=== PATIENT | male | born 1960 | race African-American/Black ===

== ENCOUNTER 2023-04-07 12:42 | Emergency (ER) | payer OTHER ==
[2023-04-07] MEDS ORDERED: Magnesium 2 GM/50 ML BAG (IN WATER) ONE (13:44)
[2023-04-07] MEDS ORDERED: predniSONE 20 MG TAB ONE (13:44)
[2023-04-07 13:52] LABS: #Eosinphils 0.5 thou/uL (0.0-0.7); #Monocytes 0.4 thou/uL (0.11-0.59); #Neutrophils 1.9 thou/uL (1.40-6.50); %Basophils 0.9 % (0.0-1.0); %Eosinophils 11.3 % (0.0-10.0); %Lymphocytes 34.9 % (21.0-51.0); %Monocytes 9.2 % (0.0-10.0); %Neutrophils 43.5 % (42.0-75.0); Hematocrit 44.4 % (42.0-52.0); Mean Corpuscular HGB CONC 33.8 g/dL (32.0-36.0); Mean Corpuscular Hemoglobin 31.3 pg (27.0-31.0); Mean Corpuscular Volume 92.5 fl (78.0-98.0); Platelet Count 233 10x3/uL (130-400); RBC Distribution Width 12.1 % (11.5-14.5); White Blood Cell (WBC) Count 4.4 10x3/uL (4.8-10.8)
[2023-04-07 14:17] LABS: ALT (SGPT) 15 U/L (8-55); AST (SGOT) 16 U/L (5-34); Albumin 4.1 g/dL (3.4-4.8); Alkaline Phosphatase 66 U/L (40-110); Anion Gap 12 mmol/L (10-20); BUN (Urea Nitrogen) 9 mg/dL (8.4-25.7); Bilirubin, Total 0.3 mg/dL (0.2-1.2); Calc. Creatinine Clearance 0 mL/min (70-130); Calcium 9.6 mg/dL (7.8-10.44); Carbon Dioxide 25 mmol/L (23-31); Chloride 105 mmol/L (98-107); Estimated GFR 100; Globulin 3.5 g/dL (2.4-3.5); Glucose 106 mg/dL (80-115); Potassium 4.2 mmol/L (3.5-5.1); Protein, Total 7.6 g/dL (5.8-8.1); Sodium 138 mmol/L (136-145)
== END 2023-04-07 15:32 | disposition home or self-care (01) ==
LOC: ERS 12:42
DX: J44.1 Chronic obstructive pulmonary disease with (acute) exacerbation (principal); I10 Essential (primary) hypertension
CPT/HCPCS: 36415; 71045; 80053; 83880; 84484; 85025; 93005; 96365; J3475; J7512

== ENCOUNTER 2023-04-19 04:10 | Inpatient (IN) | payer OTHER ==
[2023-04-19] MEDS ORDERED: Magnesium 2 GM/50 ML BAG (IN WATER) ONE (04:14)
[2023-04-19] MEDS ORDERED: Ipratropium/Albuterol 3 ML NEB ONE (04:19)
[2023-04-19] MEDS ORDERED: LevoFLOXacin 750 mg/D5W 150 ml Premix Bag ONE (04:31)
[2023-04-19] MEDS ORDERED: Dexamethasone 10 MG/ML VIAL ONE (04:31)
[2023-04-19 04:42] LABS: Actual Bicarbonate (HCO3v) 29.2 mEq/L (22-28); Base Excess -1.5 mEq/L (-2.0 to +3.0); Calcium, Ionized (venous) 1.23 mmol/L (1.16-1.32); Chloride (VBG) 101 mmol/L (98-106); Hematocrit-VBG 54 % (42.0-52.0); Hemoglobin (Hb) 18.3 g/dL (13.1-17.2); Potassium (VBG) 4.41 mmol/L (3.70-5.30); Sodium 143.3 mmol/L (133-146); pH (venous) 7.213 (7.32-7.43)
[2023-04-19 04:57] LABS: #Basophils 0.1 thou/uL (0.0-0.2); #Eosinphils 0.4 thou/uL (0.0-0.7); #Monocytes 0.3 thou/uL (0.11-0.59); #Neutrophils 4.8 thou/uL (1.40-6.50); %Basophils 0.7 % (0.0-1.0); %Lymphocytes 21.8 % (21.0-51.0); %Monocytes 4.6 % (0.0-10.0); %Neutrophils 66.8 % (42.0-75.0); Hematocrit 51.8 % (42.0-52.0); Hemoglobin 17.2 g/dL (14.0-18.0); Mean Corpuscular HGB CONC 33.2 g/dL (32.0-36.0); Mean Corpuscular Hemoglobin 31.7 pg (27.0-31.0); Mean Corpuscular Volume 95.4 fl (78.0-98.0); Mean Platelet Volume 9.5 fL (7.4-10.4); Platelet Count 257 10x3/uL (130-400); RBC Distribution Width 12.5 % (11.5-14.5); Red Blood Cell (RBC) Count 5.43 mill/uL (4.70-6.10); White Blood Cell (WBC) Count 7.2 10x3/uL (4.8-10.8)
[2023-04-19 05:19] LABS: Actual Bicarbonate (HCO3a) 25.1 mEq/L (22-28); Analyzer IN Cardio ER; Base Excess (BEa) -1.2 mEq/L (-2.0 to +3.0); Calcium, Ionized (arterial) 1.16 mmol/L (1.12-1.30); Carboxyhemoglobin (COHb) 0.2 gm% (0.0-3.0); Hematocrit-ABG 45 % (42.0-52.0); Hemoglobin (Hb) 15.4 g/dL (14.0-18.0); O2 Tension (PaO2), arterial 146.7 mmHg (> 80.0); Potassium - ABG Lab 4.04 mmol/L (3.70-5.30); pH, Arterial 7.337 (7.35-7.45)
[2023-04-19 05:26] LABS: ALT (SGPT) 18 U/L (8-55); AST (SGOT) 18 U/L (5-34); Albumin 4.8 g/dL (3.4-4.8); Alkaline Phosphatase 80 U/L (40-110); Anion Gap 12 mmol/L (10-20); BUN (Urea Nitrogen) 12 mg/dL (8.4-25.7); Bilirubin, Total 0.4 mg/dL (0.2-1.2); Calc. Creatinine Clearance 0 mL/min (70-130); Calcium 10.1 mg/dL (7.8-10.44); Carbon Dioxide 28 mmol/L (23-31); Chloride 102 mmol/L (98-107); Estimated GFR 97; Globulin 3.9 g/dL (2.4-3.5); Glucose 104 mg/dL (80-115); Lipase 21 U/L (8-78); Potassium 4.3 mmol/L (3.5-5.1); Protein, Total 8.7 g/dL (5.8-8.1); Sodium 138 mmol/L (136-145)
[2023-04-19 05:27] LABS: Puncture Site RR
[2023-04-19 05:29] LABS: Troponin I Less than 0.010 ng/mL (< 0.028)
[2023-04-19] MEDS ORDERED: hydrALAZINE 20 MG/ML VIAL SLOW IVP PRN (07:50)
[2023-04-19] MEDS ORDERED: Ondansetron PF 4 MG/2 ML Vial IVP PRN (07:50)
[2023-04-19] MEDS ORDERED: Acetaminophen 325 MG TAB PO PRN (07:50)
[2023-04-19 08:26] VITALS: BMI 28.5
[2023-04-19] MEDS ORDERED: Arformoterol 15 MCG/2 ML NEB NEB SCH (09:45)
[2023-04-19] MEDS ORDERED: Budesonide 0.5 MG/2 ML NEB NEB SCH (09:45)
[2023-04-19] MEDS: Ipratropium/Albuterol 3 ML NEB NEB SCH ×4 (10:54→22:25)
[2023-04-19] MEDS: Famotidine 20 MG TAB PO SCH ×2 (11:03→20:21)
[2023-04-19] MEDS: methylPREDNISolone Sod Succ 40 MG VIAL IVP SCH ×3 (11:03→23:59)
[2023-04-19] MEDS: Arformoterol 15 MCG/2 ML NEB NEB SCH (18:33)
[2023-04-19] MEDS: Budesonide 0.5 MG/2 ML NEB NEB SCH (18:33)
[2023-04-19] MEDS: Gabapentin 400 MG CAP PO SCH (20:21)
[2023-04-19] MEDS: Montelukast Sodium 10 mg Tablet PO SCH (20:21)
[2023-04-20] MEDS: Ipratropium/Albuterol 3 ML NEB NEB SCH ×6 (03:05→22:19)
[2023-04-20] MEDS: LevoFLOXacin 750 mg/D5W 750 MG in Premix Bag 1 BAG IVPB SCH (05:16)
[2023-04-20] MEDS: methylPREDNISolone Sod Succ 40 MG VIAL IVP SCH ×4 (05:16→23:22)
[2023-04-20 06:51] LABS: #Monocytes 0.2 thou/uL (0.11-0.59); #Neutrophils 8.5 thou/uL (1.40-6.50); %Lymphocytes 11.4 % (21.0-51.0); %Monocytes 2.1 % (0.0-10.0); %Neutrophils 86.2 % (42.0-75.0); Hematocrit 43.9 % (42.0-52.0); Hemoglobin 14.3 g/dL (14.0-18.0); Mean Corpuscular HGB CONC 32.6 g/dL (32.0-36.0); Mean Corpuscular Hemoglobin 31.4 pg (27.0-31.0); Mean Corpuscular Volume 96.3 fl (78.0-98.0); Mean Platelet Volume 9.9 fL (7.4-10.4); Platelet Count 214 10x3/uL (130-400); RBC Distribution Width 12.5 % (11.5-14.5); Red Blood Cell (RBC) Count 4.56 mill/uL (4.70-6.10); White Blood Cell (WBC) Count 9.9 10x3/uL (4.8-10.8)
[2023-04-20 07:18] LABS: Anion Gap 16 mmol/L (10-20); BUN (Urea Nitrogen) 12 mg/dL (8.4-25.7); Calc. Creatinine Clearance 104 mL/min (70-130); Calcium 9.8 mg/dL (7.8-10.44); Carbon Dioxide 24 mmol/L (23-31); Chloride 103 mmol/L (98-107); Estimated GFR 98; Glucose 169 mg/dL (80-115); Potassium 4.6 mmol/L (3.5-5.1); Sodium 138 mmol/L (136-145)
[2023-04-20] MEDS: Arformoterol 15 MCG/2 ML NEB NEB SCH ×2 (07:24→18:26)
[2023-04-20] MEDS: Budesonide 0.5 MG/2 ML NEB NEB SCH ×2 (07:24→18:26)
[2023-04-20] MEDS: Gabapentin 400 MG CAP PO SCH ×3 (09:06→21:08)
[2023-04-20] MEDS: Famotidine 20 MG TAB PO SCH ×2 (09:06→21:08)
[2023-04-20] MEDS: Montelukast Sodium 10 mg Tablet PO SCH (21:08)
[2023-04-21] MEDS: Ipratropium/Albuterol 3 ML NEB NEB SCH ×6 (02:27→22:08)
[2023-04-21] MEDS: methylPREDNISolone Sod Succ 40 MG VIAL IVP SCH ×3 (05:33→17:45)
[2023-04-21] MEDS: LevoFLOXacin 750 mg/D5W 750 MG in Premix Bag 1 BAG IVPB SCH (05:33)
[2023-04-21] MEDS: Arformoterol 15 MCG/2 ML NEB NEB SCH ×2 (06:24→18:49)
[2023-04-21] MEDS: Budesonide 0.5 MG/2 ML NEB NEB SCH ×2 (06:27→18:48)
[2023-04-21] MEDS: Famotidine 20 MG TAB PO SCH ×2 (08:29→21:17)
[2023-04-21] MEDS: Amlodipine 10 MG TAB PO SCH (08:29)
[2023-04-21] MEDS: Gabapentin 400 MG CAP PO SCH ×3 (08:30→21:16)
[2023-04-21] MEDS: Cholecalciferol 1,000 UNITS (25 MCG) TAB PO SCH (08:30)
[2023-04-21] MEDS ORDERED: Non-Formulary Item 1 EACH (Cholecalciferol (Vitamin D3) [Vitamin D3] 50 MCG Capsule) PO SCH (09:00)
[2023-04-21] MEDS ORDERED: Benzonatate 100 MG CAP PO PRN (17:56)
[2023-04-21] MEDS ORDERED: Bisacodyl 5 MG TAB PO PRN (17:57)
[2023-04-21] MEDS: Montelukast Sodium 10 mg Tablet PO SCH (21:17)
[2023-04-22] MEDS: methylPREDNISolone Sod Succ 40 MG VIAL IVP SCH ×3 (00:29→12:39)
[2023-04-22] MEDS: Ipratropium/Albuterol 3 ML NEB NEB SCH ×3 (03:13→10:46)
[2023-04-22] MEDS: LevoFLOXacin 750 mg/D5W 750 MG in Premix Bag 1 BAG IVPB SCH (05:18)
[2023-04-22 06:10] LABS: #Monocytes 0.2 thou/uL (0.11-0.59); %Basophils 0.1 % (0.0-1.0); %Lymphocytes 7.1 % (21.0-51.0); %Monocytes 1.7 % (0.0-10.0); %Neutrophils 90.8 % (42.0-75.0); Hematocrit 40.1 % (42.0-52.0); Hemoglobin 13.2 g/dL (14.0-18.0); Mean Corpuscular HGB CONC 32.9 g/dL (32.0-36.0); Mean Corpuscular Hemoglobin 31.7 pg (27.0-31.0); Mean Corpuscular Volume 96.4 fl (78.0-98.0); Mean Platelet Volume 9.8 fL (7.4-10.4); Platelet Count 208 10x3/uL (130-400); RBC Distribution Width 12.7 % (11.5-14.5); Red Blood Cell (RBC) Count 4.16 mill/uL (4.70-6.10); White Blood Cell (WBC) Count 13.2 10x3/uL (4.8-10.8)
[2023-04-22 06:35] LABS: Anion Gap 12 mmol/L (10-20); BUN (Urea Nitrogen) 12 mg/dL (8.4-25.7); Calc. Creatinine Clearance 110 mL/min (70-130); Calcium 9.3 mg/dL (7.8-10.44); Carbon Dioxide 26 mmol/L (23-31); Chloride 102 mmol/L (98-107); Estimated GFR 100; Glucose 162 mg/dL (80-115); Sodium 136 mmol/L (136-145)
[2023-04-22] MEDS: Arformoterol 15 MCG/2 ML NEB NEB SCH (07:02)
[2023-04-22] MEDS: Budesonide 0.5 MG/2 ML NEB NEB SCH (07:02)
[2023-04-22 08:14] VITALS: BP 153/92; TEMP 98.3
[2023-04-22] MEDS: Cholecalciferol 1,000 UNITS (25 MCG) TAB PO SCH (08:15)
[2023-04-22] MEDS: Gabapentin 400 MG CAP PO SCH (08:15)
[2023-04-22] MEDS: Famotidine 20 MG TAB PO SCH (08:16)
[2023-04-22] MEDS: Amlodipine 10 MG TAB PO SCH (08:16)
== END 2023-04-22 12:34 | disposition home or self-care (01) | DRG 192 ==
LOC: ERS 04:10 → SUATTDRO 04:10 → SJJU 06:43
PROVIDERS: ADMIT Family Medicine; ATTEND Internal Medicine
PROC: 4A033R1 Measurement of Arterial Saturation, Peripheral, Percutaneous Approach (ICD-10-PCS; principal; 2023-04-19)
PROC: 4A043R1 Measurement of Venous Saturation, Peripheral, Percutaneous Approach (ICD-10-PCS; 2023-04-19)
DX: J44.1 Chronic obstructive pulmonary disease with (acute) exacerbation (principal); I10 Essential (primary) hypertension; G47.33 Obstructive sleep apnea (adult) (pediatric); G89.29 Other chronic pain; Z79.899 Other long term (current) drug therapy
CPT/HCPCS: 36415; 71045; 80048; 80053; 82805; 83605; 83690; 83735; 83880; 84484; 85025; 87040; 87149; 87633; 87798; 93005; 94640; 94660; 96365; 96366; 96367; 96375; J1100; J1650; J1956; J2920; J3475; J7620; J7626

== ENCOUNTER 2023-08-16 11:16 | Emergency (ER) | payer OTHER ==
[2023-08-16] MEDS ORDERED: Ipratropium/Albuterol 3 ML NEB ONE ×2 (11:36→13:24)
[2023-08-16] MEDS ORDERED: methylPREDNISolone Sod Succ/PF 125 MG/2 ML VIAL ONE (11:36)
[2023-08-16 12:01] LABS: #Eosinphils 0.1 thou/uL (0.0-0.7); #Monocytes 0.8 thou/uL (0.11-0.59); #Neutrophils 2.8 thou/uL (1.40-6.50); %Basophils 0.4 % (0.0-1.0); %Lymphocytes 30.2 % (21.0-51.0); %Monocytes 15.5 % (0.0-10.0); %Neutrophils 52.7 % (42.0-75.0); Hematocrit 49.5 % (42.0-52.0); Hemoglobin 16.4 g/dL (14.0-18.0); Mean Corpuscular HGB CONC 33.1 g/dL (32.0-36.0); Mean Corpuscular Hemoglobin 31.8 pg (27.0-31.0); Mean Corpuscular Volume 96.1 fl (78.0-98.0); Platelet Count 186 10x3/uL (130-400); Red Blood Cell (RBC) Count 5.15 mill/uL (4.70-6.10); White Blood Cell (WBC) Count 5.2 10x3/uL (4.8-10.8)
[2023-08-16 12:20] LABS: ALT (SGPT) 16 U/L (8-55); AST (SGOT) 22 U/L (5-34); Albumin 4.4 g/dL (3.4-4.8); Alkaline Phosphatase 70 U/L (40-110); Anion Gap 16 mmol/L (10-20); BUN (Urea Nitrogen) 10 mg/dL (8.4-25.7); Bilirubin, Total 0.4 mg/dL (0.2-1.2); Calc. Creatinine Clearance 0 mL/min (70-130); Calcium 9.3 mg/dL (7.8-10.44); Carbon Dioxide 18 mmol/L (23-31); Chloride 103 mmol/L (98-107); Estimated GFR 96; Globulin 3.8 g/dL (2.4-3.5); Glucose 101 mg/dL (80-115); Potassium 4.1 mmol/L (3.5-5.1); Protein, Total 8.2 g/dL (5.8-8.1); Sodium 133 mmol/L (136-145)
[2023-08-16] MEDS ORDERED: Acetaminophen 500 MG TAB ONE (12:42)
[2023-08-16] MEDS ORDERED: predniSONE 20 MG TAB ONE (12:42)
[2023-08-16 13:24] LABS: SARS-CoV-2 NAA Rapid Test Not Detected (NotDetected)
== END 2023-08-16 14:47 | disposition home or self-care (01) ==
LOC: ERS 11:16
DX: J10.1 Influenza due to other identified influenza virus with other respiratory manifestations (principal); J44.1 Chronic obstructive pulmonary disease with (acute) exacerbation; I10 Essential (primary) hypertension; Z20.822 Contact with and (suspected) exposure to COVID-19; Z79.899 Other long term (current) drug therapy
CPT/HCPCS: 36415; 71045; 80053; 83605; 85025; 87040; 93005; 94640; J2930; J7512; J7620

== ENCOUNTER 2023-09-23 05:53 | Inpatient (IN) | payer OTHER ==
[2023-09-23] MEDS ORDERED: Albuterol 2.5 MG (3 mL) NEB ONE (06:20)
[2023-09-23] MEDS ORDERED: Albuterol 2.5 MG (0.5 mL) NEB ONE (06:21)
[2023-09-23 06:44] LABS: #Eosinphils 0.3 thou/uL (0.0-0.7); #Monocytes 0.5 thou/uL (0.11-0.59); #Neutrophils 1.6 thou/uL (1.40-6.50); %Basophils 0.9 % (0.0-1.0); %Eosinophils 7.3 % (0.0-10.0); %Lymphocytes 41.4 % (21.0-51.0); %Monocytes 11.8 % (0.0-10.0); %Neutrophils 38.6 % (42.0-75.0); Hematocrit 45.7 % (42.0-52.0); Mean Corpuscular HGB CONC 32.8 g/dL (32.0-36.0); Mean Corpuscular Hemoglobin 31.3 pg (27.0-31.0); Mean Corpuscular Volume 95.4 fl (78.0-98.0); Mean Platelet Volume 9.7 fL (7.4-10.4); Platelet Count 229 10x3/uL (130-400); RBC Distribution Width 12.9 % (11.5-14.5); Red Blood Cell (RBC) Count 4.79 mill/uL (4.70-6.10); White Blood Cell (WBC) Count 4.3 10x3/uL (4.8-10.8)
[2023-09-23 07:10] LABS: Troponin I Less than 0.010 ng/mL (< 0.028)
[2023-09-23 07:12] LABS: ALT (SGPT) 17 U/L (8-55); AST (SGOT) 15 U/L (5-34); Albumin 4.1 g/dL (3.4-4.8); Alkaline Phosphatase 57 U/L (40-110); Anion Gap 12 mmol/L (10-20); BUN (Urea Nitrogen) 10 mg/dL (8.4-25.7); Bilirubin, Total 0.3 mg/dL (0.2-1.2); Calc. Creatinine Clearance 0 mL/min (70-130); Calcium 9.2 mg/dL (7.8-10.44); Carbon Dioxide 22 mmol/L (23-31); Chloride 108 mmol/L (98-107); Estimated GFR 92; Globulin 3.2 g/dL (2.4-3.5); Glucose 113 mg/dL (80-115); Lipase 31 U/L (8-78); Potassium 4.3 mmol/L (3.5-5.1); Protein, Total 7.3 g/dL (5.8-8.1); Sodium 138 mmol/L (136-145)
[2023-09-23] MEDS ORDERED: cefTRIAXone (ROCEPHIN) 2 GM VIAL ONE (07:29)
[2023-09-23] MEDS ORDERED: Azithromycin 500 MG VIAL ONE (07:29)
[2023-09-23] MEDS ORDERED: Sodium Chloride 0.9% 100 ML ONE (07:29)
[2023-09-23 07:43] LABS: SARS-CoV-2 NAA Rapid Test Not Detected (NotDetected)
[2023-09-23] MEDS ORDERED: Albuterol 2.5 MG (3 mL) NEB NEB PRN (08:41)
[2023-09-23] MEDS ORDERED: Guaifenesin DM 100-10/5 ML UDCUP PO PRN (08:42)
[2023-09-23] MEDS ORDERED: Ondansetron ODT 4 MG TAB PO PRN (08:42)
[2023-09-23] MEDS ORDERED: Ondansetron PF 4 MG/2 ML Vial IVP PRN (08:42)
[2023-09-23] MEDS ORDERED: Acetaminophen 325 MG TAB PO PRN (08:42)
[2023-09-23] MEDS ORDERED: Senokot S 8.6-50 MG TAB PO PRN (08:42)
[2023-09-23] MEDS ORDERED: methylPREDNISolone Sod Succ/PF 125 MG/2 ML VIAL ONE (09:09)
[2023-09-23 09:26] LABS: Actual Bicarbonate (HCO3a) 20.3 mEq/L (22-28); Analyzer IN Cardio ER; CO2 Tension 38.6 mmHg (35.0-45.0); Calcium, Ionized (arterial) 1.16 mmol/L (1.12-1.30); Carboxyhemoglobin (COHb) 0.4 gm% (0.0-3.0); Hematocrit-ABG 42 % (42.0-52.0); Hemoglobin (Hb) 14.4 g/dL (14.0-18.0); O2 Tension (PaO2), arterial 89.3 mmHg (> 80.0); Potassium - ABG Lab 4.47 mmol/L (3.70-5.30); pH, Arterial 7.338 (7.35-7.45)
[2023-09-23 09:35] LABS: Puncture Site RRA
[2023-09-23] MEDS: Amlodipine 10 MG TAB PO SCH (09:45)
[2023-09-23] MEDS ORDERED: Famotidine 20 MG TAB PO SCH (10:00)
[2023-09-23] MEDS ORDERED: Gabapentin 300 MG CAP PO SCH (10:00)
[2023-09-23 11:36] LABS: Troponin I Less than 0.010 ng/mL (< 0.028)
[2023-09-23] MEDS ORDERED: Gabapentin 300 MG CAP ONE ×2 (12:50→16:48)
[2023-09-23] MEDS ORDERED: methylPREDNISolone Sod Succ 40 MG VIAL ONE ×2 (12:51→19:02)
[2023-09-23] MEDS ORDERED: Famotidine 20 MG TAB ONE (12:51)
[2023-09-23] MEDS ORDERED: Ipratropium/Albuterol 3 ML NEB ONE ×2 (12:52→19:31)
[2023-09-23] MEDS: Ipratropium/Albuterol 3 ML NEB NEB SCH ×3 (12:55→23:35)
[2023-09-23] MEDS: methylPREDNISolone Sod Succ 40 MG VIAL IVP SCH ×2 (13:18→19:00)
[2023-09-23] MEDS: Gabapentin 300 MG CAP PO SCH (16:04)
[2023-09-24] MEDS: Famotidine 20 MG TAB PO SCH ×2 (01:20→08:53)
[2023-09-24] MEDS: methylPREDNISolone Sod Succ 40 MG VIAL IVP SCH ×3 (01:20→12:29)
[2023-09-24] MEDS: Gabapentin 300 MG CAP PO SCH ×3 (01:20→14:40)
[2023-09-24 04:49] LABS: #Monocytes 0.2 thou/uL (0.11-0.59); #Neutrophils 6.3 thou/uL (1.40-6.50); %Basophils 0.1 % (0.0-1.0); %Lymphocytes 14.3 % (21.0-51.0); %Neutrophils 83.3 % (42.0-75.0); Hematocrit 40.1 % (42.0-52.0); Hemoglobin 13.3 g/dL (14.0-18.0); Mean Corpuscular HGB CONC 33.2 g/dL (32.0-36.0); Mean Corpuscular Hemoglobin 31.1 pg (27.0-31.0); Mean Corpuscular Volume 93.9 fl (78.0-98.0); Mean Platelet Volume 10.1 fL (7.4-10.4); Platelet Count 235 10x3/uL (130-400); RBC Distribution Width 12.9 % (11.5-14.5); Red Blood Cell (RBC) Count 4.27 mill/uL (4.70-6.10); White Blood Cell (WBC) Count 7.6 10x3/uL (4.8-10.8)
[2023-09-24 04:57] VITALS: BMI 31.4
[2023-09-24 05:13] LABS: Anion Gap 11 mmol/L (10-20); BUN (Urea Nitrogen) 13 mg/dL (8.4-25.7); Calc. Creatinine Clearance 0 mL/min (70-130); Calcium 9.2 mg/dL (7.8-10.44); Carbon Dioxide 24 mmol/L (23-31); Chloride 107 mmol/L (98-107); Estimated GFR 98; Glucose 160 mg/dL (80-115); Potassium 4.4 mmol/L (3.5-5.1); Sodium 138 mmol/L (136-145)
[2023-09-24] MEDS: Ipratropium/Albuterol 3 ML NEB NEB SCH ×2 (07:40→12:52)
[2023-09-24] MEDS ORDERED: cefTRIAXone\\ROCEPHIN 2 GM in Sodium Chloride 0.9% 100 ML IVPB SCH (08:00)
[2023-09-24] MEDS: Amlodipine 10 MG TAB PO SCH (08:52)
[2023-09-24 13:26] VITALS: TEMP 98.1
[2023-09-24 17:42] VITALS: BP 141/88
== END 2023-09-24 16:05 | disposition home or self-care (01) | DRG 189 ==
LOC: SUATTDRO 05:53 → ERS 05:53 → ERHOLD 08:41 → T4-A 23:32
PROVIDERS: ADMIT Hospitalist; ATTEND Hospitalist
PROC: 4A033R1 Measurement of Arterial Saturation, Peripheral, Percutaneous Approach (ICD-10-PCS; principal; 2023-09-23)
PROC: 5A09357 Assistance with Respiratory Ventilation, Less than 24 Consecutive Hours, Continuous Positive Airway Pressure (ICD-10-PCS; 2023-09-23)
PROC: 5A0935A Assistance with Respiratory Ventilation, Less than 24 Consecutive Hours, High Flow/Velocity Cannula (ICD-10-PCS; 2023-09-23)
DX: J96.01 Acute respiratory failure with hypoxia (principal); J44.1 Chronic obstructive pulmonary disease with (acute) exacerbation; I10 Essential (primary) hypertension; Z79.899 Other long term (current) drug therapy; Z79.51 Long term (current) use of inhaled steroids; G47.33 Obstructive sleep apnea (adult) (pediatric); Z98.890 Other specified postprocedural states; Z82.49 Family history of ischemic heart disease and other diseases of the circulatory system; Z87.891 Personal history of nicotine dependence; Z11.52 Encounter for screening for COVID-19
CPT/HCPCS: 36415; 36600; 71045; 80048; 80053; 82805; 83605; 83690; 83735; 83880; 84484; 85025; 87040; 93005; 94640; 94660; J0456; J0696; J2920; J2930; J3490; J7611; J7620